=== PATIENT | male | born 1935 | race Caucasian/White ===

== ENCOUNTER 2018-01-18 07:01 | Inpatient (IN) | payer OTHER ==
[2018-01-03 18:22] VITALS: BMI 30.4
[2018-01-18] MEDS ORDERED: GABAPENTIN 300 MG CAPSULE (FP) PO ONE (07:26)
[2018-01-18] MEDS ORDERED: CEFAZOLIN 2 GM/D5W 2 GM/50 ML ML IVPB ONE (07:26)
[2018-01-18] MEDS ORDERED: TRANEXAMIC ACID 1000 MG/10 ML VIAL IVPUSH ONE (07:26)
[2018-01-18] MEDS ORDERED: CELECOXIB 200 MG CAPSULE PO ONE (07:26)
[2018-01-18] MEDS ORDERED: DEXAMETHASONE SOD PHOSPHATE/PF 10 MG/ML SDV ONE (07:37)
[2018-01-18] MEDS ORDERED: BUPIVACAINE HCL/PF (5 MG/ML) 30 ML VIAL IJ ONE (07:38)
[2018-01-18] MEDS ORDERED: MIDAZOLAM HCL 2 MG/2 ML SINGLE DOSE VIAL ONE (07:38)
[2018-01-18] MEDS ORDERED: GABAPENTIN 300 MG CAPSULE (FP) ONE (07:42)
[2018-01-18] MEDS ORDERED: CELECOXIB 200 MG CAPSULE ONE (07:42)
--- NOTE | 2018-01-18 07:53 | HP ---
Satellite [facility] - Chief Complaint Chief Complaint: right hip pain - Past Medical History Allergies/Adverse Reactions: Allergies Allergy/AdvReac Type Severity Reaction Status Date / Time No Known Allergies Allergy Verified 01/03/18 18:04 - Current Medications Current Medications: Home Medications Medication Instructions Recorded Amlodipine Besylate 5 mg PO HS 10/05/16 Aspirin [ASA -] 81 mg PO HS 10/05/16 Hydrochlorothiazide 25 mg PO HS 10/05/16 Losartan Potassium 100 mg PO HS 10/05/16 Simvastatin 10 mg PO HS 10/05/16 Cholecalciferol (Vitamin D3) 400 unit PO DAILY 01/03/18 [Vitamin D3 -] Ferrous Sulfate [Iron] 325 mg PO DAILY 01/03/18 Ibuprofen [Advil -] 200 mg PO DAILY 01/03/18 Satellite Physical Exam - Physical Examination Vital Signs: Vital Signs Period Temp Pulse Resp BP Sys/Nunn Pulse Ox Last 24 Hr 97.9 F 66 18 130/66 General Appearance: Well Nourished, Well Developed, Alert & Oriented x3 ENT: Clear Lung: Normal air movement Heart: Regular rate & rhythm Extremities: Other (right hip- + ttp, decr rom, nvi xrays show grade 4 hip djd) Neurological: Intact, Alert, Oriented Satellite Impression/Plan - Impression/Plan Impression: right hip djd Operative Procedure: right yany thr Date to be Performed: 01/18/18
[2018-01-18] MEDS ORDERED: VANCOMYCIN 1,000 MG VIAL (RESTRICTED TO ID ONLY) IVPB ONE (09:22)
[2018-01-18] MEDS ORDERED: ONDANSETRON 4 MG/2 ML VIAL IVPUSH PRN (09:37)
[2018-01-18] MEDS ORDERED: MAGNESIUM HYDROX 2400MG/30ML ORAL SUSPENSION 30 ML CUP PO PRN (09:51)
[2018-01-18] MEDS ORDERED: MAG HYDROX/AL HYDROX/SIMETH 30 ML UNIT-DOSE CUP PO PRN (09:51)
--- NOTE | 2018-01-18 09:53 | OP ---
Operative Note - Note: Operative Date: 01/18/18 (florecita) Pre-Operative Diagnosis: right hip djd Operation: right yany thr Post-Operative Diagnosis: Same as Pre-op Surgeon: Bonifacio Morales Character Impersonator: Pete Kruse Anesthesiologist/FOOT AND ANKLE SURGEON: Michael Cody Anesthesia: Spinal, Local Specimens Removed: femoral head Estimated Blood Loss (mls): 100 Operative Report Dictated: Yes
[2018-01-18] MEDS ORDERED: LACTATED RINGERS SOLUTION 1,000 ML IV SCH (10:00)
--- NOTE | 2018-01-18 10:37 | SPEC ---
DATE OF OPERATION: 01/18/2018 PREOPERATIVE DIAGNOSIS: Degenerative joint disease right hip. POSTOPERATIVE DIAGNOSIS: Degenerative joint disease right hip. PROCEDURE PERFORMED: Right total hip replacement with robotic-assisted navigation (MAKOplasty). SURGICAL ATTENDING: Bonifacio Morales MD ENDOSCOPY RN: RENETTA Juarez ANESTHESIA: Regional and spinal. CLOSURE: A Roosevelt hip system with a 58 Trident II press-fit acetabulum, a number 7 press-fit Accolade II femoral stem, and a 36-mm plus 5 femoral head. Number 1 Vicryl for fascia, 0 and 2-0 subcutaneous, 3-0 V-Loc for skin, 4-0 undyed Vicryl for pin sites. ESTIMATED BLOOD LOSS: Negligible. COMPLICATIONS: None. CONDITION: To the recovery room in stable condition. DESCRIPTION OF PROCEDURE: The patient was taken to the operating room on January 18, 2018. General and regional anesthesia was administered by the anesthesiologist. IV Kefzol and TXA were administered prophylactically prior to the case. The patient was placed in the lateral decubitus position will all prominences well-padded. The right hip area was prepped and draped in the usual sterile fashion. Using 3 small stab incisions over the iliac crest, 3 threaded pins were drilled in power fashion through the 2 tables of the crest. These pins were fastened and the navigation array for the Lam navigation system. Next, a 12 to 15-cm curved longitudinal incision over the posterolateral aspect of the greater trochanter was incised. Hemostasis was achieved with Bovie cautery. Sharp dissection was carried down to level of the fascia. The fascia was opened the entire length of the incision, spreading the fibers of the gluteus tona in the direction of origin. A Charnley retractor was placed in this layer. Care was taken not to impale the sciatic nerve. The short external rotators were detached off the insertion of the greater trochanter and peeled off the capsule. A posterior capsulotomy was then performed. A check point was malleted into the greater trochanter and a point on the inferior pole of the patella was obtained as well. These 2 points were used to assess the preoperative offset and limb lengths of the hip. The hip was then dislocated. The femoral neck was then osteotomized down to the appropriate level as directed by the navigation device. Anterior and posterior retractors were placed, exposing the acetabulum. A circumferential labral excision was performed. A check point was malleted into the acetabulum as well. Multiple sites inside the acetabulum and around the rim were utilized to register the acetabulum with the navigation device. An excellent registration of less than 0.5 mm was obtained. The hip was then reamed with the appropriate reamer down to the appropriate depth, with the appropriate orientation and version as assessed on our preoperative plan for this patient. The reamer was removed and the acetabulum was inspected to have good bleeding surfaces throughout. The real acetabular cup was then malleted down into place, with the holes in the appropriate position, until an excellent fixation was obtained. No screws were necessary. The navigation device ensured appropriate orientation and version, with the depth as predetermined. The appropriate liner was then clipped into place. Attention was directed to the femur. The proximal femur was prepared by use a box chisel, a canal finder and serial broaches until the broach achieved excellent rigidity in the proximal femur with the appropriate version being applied. A calcar planer was used to smooth off the calcar flush with the trial components. A trial reduction with the appropriate head was done, and the hip was reduced. The hip was taken through a range of motion from full extension with external rotation to marked flexion, and was stable at 90 degrees of flexion. It was stable to marked abduction and internal rotation, with a positive hang test and negative telescoping. Limb lengths were ascertained visually as well as with the navigation device to be within the targeted range for this patient. The trial component was removed. The real component was then malleted into place. The head was cold welded to the trunnion, and the hip was reduced. Range of motion, stability and limb lengths were as described in the trial component. Then the hip was pulse antibiotic irrigated. Vancomycin powder was placed in the hip joint. The capsule was closed. The fascia was then closed as well using number 1 Vicryl interrupted suture, 0 and 2-0 subcutaneous, and 3-0 V-Loc for the skin. 4-0 undyed Vicryl was used to close the pin sites after the pins were removed. All check points were also removed. Sterile Aquacel dressing was applied. The patient was awakened from anesthesia and transferred into the supine position. Bilateral SCDs and an abduction pillow were placed. X-rays revealed excellent position of the components. The patient was transferred to the recovery room in stable condition, with no complications. Estimated blood loss was negligible. Steven [id number]
[2018-01-18] MEDS: ACETAMINOPHEN 325 MG TABLET (FP) PO SCH ×3 (12:51→21:50)
[2018-01-18] MEDS: FERROUS SO4 325 MG TABLET (FP) PO SCH (12:51)
[2018-01-18] MEDS: PANTOPRAZOLE 40 MG TABLET (FP) PO SCH (12:59)
[2018-01-18] MEDS: MULTIVITAMINS (DAILY MVI) TABLET (FP) PO SCH (12:59)
[2018-01-18] MEDS: SENNOSIDES/DOCUSATE COMBO (SENNA PLUS) TABLET (UD) PO SCH ×2 (16:20→21:50)
[2018-01-18] MEDS: oxyCODONE HCL 5 MG TABLET PO PRN (16:23)
[2018-01-18] MEDS: CEFAZOLIN 2 GM/D5W 2 GM/50 ML ML IVPB SCH (16:24)
[2018-01-18] MEDS: ATORVASTATIN CA 10 MG TABLET (FP) PO SCH (21:49)
[2018-01-18] MEDS: LOSARTAN POTASSIUM 50 MG TABLET (FP) PO SCH (21:49)
[2018-01-18] MEDS: amLODIPine BESYLATE 5 MG TABLET (FP) PO SCH (21:50)
[2018-01-18] MEDS: HYDROCHLOROTHIAZIDE 25 MG TABLET (FP) PO SCH (21:51)
[2018-01-19] MEDS: CEFAZOLIN 2 GM/D5W 2 GM/50 ML ML IVPB SCH (00:10)
[2018-01-19] MEDS: oxyCODONE HCL 5 MG TABLET PO PRN ×2 (05:48→10:43)
[2018-01-19] MEDS: ACETAMINOPHEN 325 MG TABLET (FP) PO SCH ×4 (05:49→22:17)
[2018-01-19] MEDS: ASPIRIN 325 MG TABLET PO SCH (08:15)
--- NOTE | 2018-01-19 08:24 | PN ---
Progress Note (short form) - Note Progress Note: Ortho Pt seen and examined s/p right yany thr pod #1 Selected Entries 01/19/18 06:54 Temperature 98 F Pulse Rate 68 Respiratory 20 Rate Blood Pressure 100/48 Laboratory Tests 01/19/18 07:50 WBC Pending Hgb Pending Hct Pending Plt Count Pending dressing c/d/i, calf soft, nt nvi a/p PT hip precautions dvt ppx pain control d/c planning to rehab
[2018-01-19 08:54] LABS: HEMATOCRIT 33.8 % (35.4-49); HEMOGLOBIN 11.2 GM/dl (11.7-16.9); MCH 29.8 pg (25.7-33.7); MCHC 33.2 g/dl (32.0-35.9); MEAN CELL VOLUME 89.9 fl (80-96); MEAN PLT VOLUME 7.8 fl (7.5-11.1); PLATELET COUNT 228 K/MM3 (134-434); RBC 3.75 M/mm3 (4.00-5.60); RDW 12.1 % (11.9-15.9); WHITE BLOOD COUNT 11.9 K/mm3 (4.0-10.8)
[2018-01-19] MEDS: SENNOSIDES/DOCUSATE COMBO (SENNA PLUS) TABLET (UD) PO SCH ×2 (10:39→22:17)
[2018-01-19] MEDS: FERROUS SO4 325 MG TABLET (FP) PO SCH (10:39)
[2018-01-19] MEDS: PANTOPRAZOLE 40 MG TABLET (FP) PO SCH (10:42)
[2018-01-19] MEDS: MULTIVITAMINS (DAILY MVI) TABLET (FP) PO SCH (10:43)
--- NOTE | 2018-01-19 13:25 | PN ---
Progress Note (short form) - Note Progress Note: 82M POD1 s/p R THR yany under spinal anesthetic with peripheral nerve block for post operative pain relief. Pt states that pain is well controlled, reports no anesthetic complications. AVSS. Motor and sensory function intact in bilateral lower extremities. Continue current regimen.
[2018-01-19] MEDS: amLODIPine BESYLATE 5 MG TABLET (FP) PO SCH (22:14)
[2018-01-19] MEDS: LOSARTAN POTASSIUM 50 MG TABLET (FP) PO SCH (22:15)
[2018-01-19] MEDS: ATORVASTATIN CA 10 MG TABLET (FP) PO SCH (22:16)
[2018-01-19] MEDS: HYDROCHLOROTHIAZIDE 25 MG TABLET (FP) PO SCH (22:16)
[2018-01-20] MEDS: LACTATED RINGERS SOLUTION 1,000 ML IV SCH (01:08)
[2018-01-20] MEDS: ACETAMINOPHEN 325 MG TABLET (FP) PO SCH ×4 (04:05→21:55)
[2018-01-20] MEDS: oxyCODONE HCL 5 MG TABLET PO PRN ×3 (06:47→14:45)
[2018-01-20 08:58] LABS: HEMATOCRIT 32.9 % (35.4-49); HEMOGLOBIN 11.5 GM/dl (11.7-16.9); MCH 31.4 pg (25.7-33.7); MEAN CELL VOLUME 89.7 fl (80-96); MEAN PLT VOLUME 7.8 fl (7.5-11.1); PLATELET COUNT 199 K/MM3 (134-434); RBC 3.66 M/mm3 (4.00-5.60); RDW 12.4 % (11.9-15.9); WHITE BLOOD COUNT 11.3 K/mm3 (4.0-10.8)
--- NOTE | 2018-01-20 09:03 | PN ---
Progress Note (short form) - Note Progress Note: Ortho Pt seen and examined s/p right yany thr pod #2 Selected Entries 01/19/18 22:00 Temperature 98.5 F Pulse Rate 76 Respiratory 20 Rate Blood Pressure 145/51 Laboratory Tests 01/20/18 08:30 WBC 11.3 H Hgb 11.5 L Hct 32.9 L Plt Count 199 dressing c/d/i, calf soft, nt nvi a/p PT hip precautions dvt ppx pain control d/c planning to rehab tomorrow
[2018-01-20] MEDS: SENNOSIDES/DOCUSATE COMBO (SENNA PLUS) TABLET (UD) PO SCH ×2 (09:11→21:55)
[2018-01-20] MEDS: PANTOPRAZOLE 40 MG TABLET (FP) PO SCH (09:11)
[2018-01-20] MEDS: MULTIVITAMINS (DAILY MVI) TABLET (FP) PO SCH (09:11)
[2018-01-20] MEDS: ASPIRIN 325 MG TABLET PO SCH (09:11)
[2018-01-20] MEDS: FERROUS SO4 325 MG TABLET (FP) PO SCH (10:00)
--- NOTE | 2018-01-20 13:33 | PATH ---
Surgical Pathology Report Patient Name: ELAINE MIMS Med. Rec. #: [id number] /Age/Gender: 1935 (Age: 82) / M Account: [id number] Location: [facility] MED-SURG Taken: 01/18/2018 Received: 01/18/2018 Reported: 01/20/2018 Physicians: Bonifacio Morales M.D. Specimen(s) Received HEAD OF RIGHT FEMUR Clinical History Osteoarthritis of right hip Final Diagnosis BONE, HEAD OF FEMUR, RIGHT, TOTAL HIP REPLACEMENT MAKOPLASTY: BONE WITH DEGENERATIVE JOINT DISEASE. Electronically Signed Leonor Honeycutt M.D. Gross Description Received in formalin, labeled "head of right femur," is a 4.8 x 4.8 x 4.6 cm. femoral head with a 1.5 cm in length portion of femoral neck attached. The margin of resection is smooth. There is a 1.4 cm greatest dimension area of eburnation present. The remaining articular surface is salazar-yellow and diffusely granular and nodular. The underlying trabecular bone is yellow and hard. A collections representative section is submitted in one cassette, following decalcification. /01/18/2018 saudi01/18/2018
[2018-01-20] MEDS: LOSARTAN POTASSIUM 50 MG TABLET (FP) PO SCH (21:55)
[2018-01-20] MEDS: ATORVASTATIN CA 10 MG TABLET (FP) PO SCH (21:55)
[2018-01-20] MEDS: amLODIPine BESYLATE 5 MG TABLET (FP) PO SCH (21:55)
[2018-01-20] MEDS: HYDROCHLOROTHIAZIDE 25 MG TABLET (FP) PO SCH (22:29)
[2018-01-21] MEDS: ACETAMINOPHEN 325 MG TABLET (FP) PO SCH (06:13)
[2018-01-21 06:35] VITALS: BP 123/54; PULSE 74; TEMP 98.6
[2018-01-21] MEDS: LACTATED RINGERS SOLUTION 1,000 ML IV SCH ×2 (08:11→09:50)
[2018-01-21] MEDS: oxyCODONE HCL 5 MG TABLET PO PRN (08:34)
[2018-01-21] MEDS: ASPIRIN 325 MG TABLET PO SCH (08:34)
--- NOTE | 2018-01-21 09:43 | PN ---
Progress Note (short form) - Note Progress Note: Ortho Pt seen and examined s/p right yany thr pod #3 Selected Entries 01/21/18 06:00 Temperature 98.6 F Pulse Rate 74 Respiratory 18 Rate Blood Pressure 123/54 Laboratory Tests 01/20/18 08:30 WBC 11.3 H Hgb 11.5 L Hct 32.9 L Plt Count 199 dressing c/d/i, calf soft, nt nvi a/p PT hip precautions dvt ppx pain control d/c to rehab today
--- NOTE | 2018-01-21 09:43 | DS ---
Physical Examination Vital Signs: Vital Signs Temperature 98.6 F 01/21/18 06:00 Pulse Rate 74 01/21/18 06:00 Respiratory Rate 18 01/21/18 06:00 Blood Pressure 123/54 01/21/18 06:00 O2 Sat by Pulse Oximetry (%) 97 01/21/18 06:00 Labs: CBC, BMP 01/20/18 08:30 Discharge Summary Reason For Visit: OSTEOARTHRITIS Procedures: Principal: right thr Hospital Course: admitted for elective right yany thr, uneventful post-op, stable for d/c Condition: Good - Instructions Diet, Activity, Other Instructions: Post-op Instructions-Total Hip Replacement Call the office for a follow-up appointment in 1 week - [phone] Aspirin 325mg daily for 6 weeks. Pain medication was sent into your pharmacy. Apply Graduated Compression Stockings (TEDs) to both lower extremities- remove daily for hygiene ONLY Apply Sequential Compression Device (SCDs) to both Lower extremities remove for PT and hygiene ONLY Apply cold packs to affected area for 15 minutes every 2 hours. Physical Therapist will come to your home for the first 5 days. You will be set up with outpatient PT at your first post-operative visit. Patient may ambulate as tolerated-encourage self care (at least every 2-3 hours while awake) with walker or cane Maintain Aquacel (waterproof) dressing to operative wound (will be removed by surgeon at first office visit) Shower with Aquacel dressing in place-if Aquacel integrity compromised, remove and apply dry sterile dressing and notify Orthopedist. DO NOT SHOWER unless Orthopedists approves without Aquacel dressing CONTACT THE OFFICE FOR ANY CHANGE IN YOUR CONDITION (for example-fever greater than 102 degrees, excessive bleeding from operative site, purulent drainage, severe swelling or pain) GO TO THE EMERGENCY ROOM IF THERE IS A MEDICAL EMERGENCY Hip Precautions: * Keep a rolled towel under affected heel while in bed or chair (to keep knee in extension) * Dependent upon approach: * Posterior - do not cross legs; do not sit on low chairs or toilets. * If you have any questions, please do not hesitate to call the office - [phone]. Referrals: Bonifacio Morales MD [Staff Physician] - Disposition: [facility] FACILITY - Home Medications Comprehensive Discharge Medication List: Ambulatory Orders Amlodipine Besylate 5 mg PO HS 10/05/16 Hydrochlorothiazide 25 mg PO HS 10/05/16 Losartan Potassium 100 mg PO HS 10/05/16 Simvastatin 10 mg PO HS 10/05/16 Cholecalciferol (Vitamin D3) [Vitamin D -] 400 unit PO DAILY 01/03/18 Ferrous Sulfate [Iron] 325 mg PO DAILY 01/03/18 Ibuprofen [Advil -] 200 mg PO DAILY 01/03/18 Aspirin [ASA -] 325 mg PO DAILY@0800 tablet 01/18/18 Oxycodone HCl/Acetaminophen [Percocet 5-325 mg Tablet -] 1 - 2 tab PO Q6H #50 tab MDD 8 01/18/18
[2018-01-21] MEDS: SENNOSIDES/DOCUSATE COMBO (SENNA PLUS) TABLET (UD) PO SCH (09:53)
[2018-01-21] MEDS: FERROUS SO4 325 MG TABLET (FP) PO SCH (09:54)
[2018-01-21] MEDS: PANTOPRAZOLE 40 MG TABLET (FP) PO SCH (09:54)
[2018-01-21] MEDS: MULTIVITAMINS (DAILY MVI) TABLET (FP) PO SCH (09:54)
== END 2018-01-21 11:21 | DRG 470 ==
LOC: FM/S 07:01
PROVIDERS: ADMIT Orthopaedic Surgery; ATTEND Orthopaedic Surgery
PROC: 8E0Y0CZ Robotic Assisted Procedure of Lower Extremity, Open Approach (ICD-10-PCS; 2018-01-18)
PROC: 0SR90JZ Replacement of Right Hip Joint with Synthetic Substitute, Open Approach (ICD-10-PCS; principal; 2018-01-18 08:57)
DX: M16.11 Unilateral primary osteoarthritis, right hip (principal)
CPT/HCPCS: 36415; 73523-TC-FY; 85027; 88304-TC; 88311-TC; 94760; 97116-GP; 97162-GP

== ENCOUNTER 2021-11-03 04:19 | Day surgery (SDC) | payer OTHER ==
[2021-10-29 15:01] VITALS: BMI 27.0
[2021-11-03 08:24] VITALS: BP 136/54; PULSE 70; TEMP 98.7
== END 2021-11-03 09:30 | disposition home or self-care (01) ==
LOC: JASU-SURG 04:19
PROVIDERS: ATTEND Urology
DX: Z53.8 Procedure and treatment not carried out for other reasons (principal)

== ENCOUNTER 2021-11-17 04:16 | Day surgery (SDC) | payer OTHER ==
[2021-11-12 15:13] VITALS: BMI 27.0
[2021-11-17] MEDS ORDERED: MIDAZOLAM HCL 2 MG/2 ML SINGLE DOSE VIAL ONE (07:39)
[2021-11-17] MEDS ORDERED: PROPOFOL 20 ML ONE (08:05)
[2021-11-17] MEDS ORDERED: ONDANSETRON 4 MG/2 ML VIAL IVPUSH PRN (08:29)
[2021-11-17] MEDS ORDERED: LACTATED RINGERS SOLUTION 1,000 ML IV SCH (08:30)
[2021-11-17] MEDS: HYDROCHLOROTHIAZIDE 25 MG TABLET (FP) PO SCH (10:37)
[2021-11-17] MEDS: LOSARTAN POTASSIUM 50 MG TABLET PO SCH (10:37)
[2021-11-17] MEDS: ACETAMINOPHEN 325 MG TABLET (FP) PO PRN (20:28)
[2021-11-18] MEDS: HYDROCHLOROTHIAZIDE 25 MG TABLET (FP) PO SCH (09:59)
[2021-11-18] MEDS: LOSARTAN POTASSIUM 50 MG TABLET PO SCH (09:59)
[2021-11-18 11:42] VITALS: BP 115/52; PULSE 70; TEMP 98.3
[2021-11-18] MEDS: ACETAMINOPHEN 325 MG TABLET (FP) PO PRN (12:32)
== END 2021-11-18 13:16 | disposition home or self-care (01) ==
LOC: JASUSAT 04:16 → J8W 09:26 → JASUSAT 11-18 13:16
PROVIDERS: ATTEND Urology
PROC: 0TF3XZZ Fragmentation in Right Kidney Pelvis, External Approach (ICD-10-PCS; principal; 2021-11-17 08:00)
DX: N20.0 Calculus of kidney (principal)
CPT/HCPCS: 94760

== ENCOUNTER 2023-10-13 17:02 | Inpatient (IN) | payer OTHER ==
[2023-10-13 19:14] VITALS: BMI 21.8
[2023-10-13 20:32] LABS: BASO % 0.5 % (0-2.0); EOS % 1.4 % (0-4.5); HEMATOCRIT 41.3 % (35.4-49); HEMOGLOBIN 13.5 GM/dL (11.7-16.9); LYMPH % 10.7 % (8-40); MCH 30.8 pg (25.7-33.7); MCHC 32.7 g/dl (32.0-35.9); MEAN CELL VOLUME 94.3 fl (80-96); MEAN PLT VOLUME 8.1 fl (7.5-11.1); MONO % 7.7 % (3.8-10.2); NEUT % 79.7 % (42.8-82.8); PLATELET COUNT 284 10^3/uL (134-434); RBC 4.37 M/mm3 (4.00-5.60); WHITE BLOOD COUNT 10.7 K/mm3 (4.0-10.0)
[2023-10-13 20:39] LABS: INR 0.98 (0.83-1.09); PROTHROMBIN TIME (PATIENT) 11.4 SEC (9.7-13.0)
[2023-10-13 20:41] LABS: ACTIVATED PTT 27.5 SECONDS (25.2-36.5)
[2023-10-13 20:45] LABS: POTASSIUM 3.5 mmol/L (3.5-5.1)
[2023-10-13 20:46] LABS: CALCIUM 9.6 mg/dL (8.5-10.1)
[2023-10-13 20:47] LABS: BLOOD UREA NITROGEN 48.4 mg/dL (7-18); MAGNESIUM 1.9 mg/dL (1.8-2.4)
[2023-10-13 20:49] LABS: ALBUMIN 3.6 g/dl (3.4-5.0); CREATININE 1.3 mg/dL (0.55-1.3)
[2023-10-13 20:51] LABS: BILIRUBIN,TOTAL 1.3 mg/dL (0.2-1); TOT PROT 7.4 g/dl (6.4-8.2)
[2023-10-13] MEDS: SODIUM CHLORIDE 0.9% 500 ML INFUS.BAG IV ONE (21:25)
[2023-10-14] MEDS ORDERED: ASPIRIN 81 MG CHEWABLE TABLETS ONE ×3 (01:27→11:23)
[2023-10-14] MEDS: ASPIRIN 81 MG CHEWABLE TABLETS PO ONE (01:33)
[2023-10-14 03:48] LABS: PH,URINE 5.5 (5.0-8.0); URINE APPEARANCE CLEAR; URINE BILIRUBIN NEGATIVE (NEGATIVE); URINE COLOR YELLOW; URINE GLUCOSE (UA) NEGATIVE (NEGATIVE); URINE KETONE NEGATIVE (NEGATIVE); URINE LEUK ESTERASE NEGATIVE (NEGATIVE); URINE NITRITE NEGATIVE (NEGATIVE); URINE PROTEIN TRACE (NEGATIVE)
[2023-10-14] MEDS: SODIUM CHLORIDE 1,000 ML IV SCH (04:17)
[2023-10-14 08:03] LABS: BASO % 0.3 % (0-2.0); EOS % 2.6 % (0-4.5); HEMATOCRIT 36.2 % (35.4-49); HEMOGLOBIN 12.2 GM/dL (11.7-16.9); MCH 31.6 pg (25.7-33.7); MCHC 33.7 g/dl (32.0-35.9); MEAN CELL VOLUME 93.6 fl (80-96); MEAN PLT VOLUME 8.6 fl (7.5-11.1); MONO % 9.3 % (3.8-10.2); NEUT % 71.8 % (42.8-82.8); PLATELET COUNT 243 10^3/uL (134-434); RBC 3.86 M/mm3 (4.00-5.60); RDW 13.8 % (11.9-15.9); WHITE BLOOD COUNT 8.3 K/mm3 (4.0-10.0)
[2023-10-14 08:30] LABS: POTASSIUM 3.2 mmol/L (3.5-5.1)
[2023-10-14 08:36] LABS: ALBUMIN 3.3 g/dl (3.4-5.0); BLOOD UREA NITROGEN 42.3 mg/dL (7-18); CALCIUM 8.9 mg/dL (8.5-10.1)
[2023-10-14 08:40] LABS: PHOSPHOROUS 2.2 mg/dL (2.5-4.9); TOT PROT 6.7 g/dl (6.4-8.2)
[2023-10-14 08:42] LABS: BILIRUBIN,TOTAL 1.5 mg/dL (0.2-1)
[2023-10-14] MEDS ORDERED: POTASSIUM CHLORIDE TABS 20 MEQ TABLET.ER (FP) PO ONE (10:55)
[2023-10-14] MEDS ORDERED: LIDOCAINE 4% PATCH TP ONE (10:56)
[2023-10-14] MEDS ORDERED: ENOXAPARIN NA (PORCINE) 40 MG/0.4 ML DISP.SYRIN SQ ONE (10:56)
[2023-10-14] MEDS: ASPIRIN 81 MG CHEWABLE TABLETS PO SCH (11:15)
[2023-10-14] MEDS: POTASSIUM CHLORIDE TABS 20 MEQ TABLET.ER (FP) PO ONE (11:15)
[2023-10-14] MEDS: ENOXAPARIN NA (PORCINE) 40 MG/0.4 ML DISP.SYRIN SQ SCH (11:49)
[2023-10-14] MEDS: LIDOCAINE 4% PATCH TP SCH ×2 (11:49)
[2023-10-14] MEDS: OLANZapine 2.5 MG TABLET PO SCH (11:50)
[2023-10-14] MEDS: ATORVASTATIN CA 10 MG TABLET (FP) PO SCH (23:04)
[2023-10-14] MEDS: SENNOSIDES 8.6MG TABLET (FP) PO SCH (23:04)
[2023-10-14] MEDS: LIDOCAINE PATCH REMOVAL MC SCH (23:04)
[2023-10-14 23:51] LABS: N-TERMINAL BNP 1233.2 pg/ml (5-450)
[2023-10-15] MEDS: MELATONIN 1 MG TABLET PO SCH (01:30)
[2023-10-15] MEDS: metoPROLOL SUCCINATE 25 MG TAB.SR.24H (FP) PO SCH (10:14)
[2023-10-15 12:01] LABS: HEMATOCRIT 32.4 % (35.4-49); HEMOGLOBIN 10.9 GM/dL (11.7-16.9); MCH 31.4 pg (25.7-33.7); MCHC 33.6 g/dl (32.0-35.9); MEAN CELL VOLUME 93.6 fl (80-96); PLATELET COUNT 234 10^3/uL (134-434); RBC 3.47 M/mm3 (4.00-5.60); WHITE BLOOD COUNT 5.3 K/mm3 (4.0-10.0)
[2023-10-15 12:21] LABS: POTASSIUM 3.7 mmol/L (3.5-5.1)
[2023-10-15 12:23] LABS: ALBUMIN 2.8 g/dl (3.4-5.0); BLOOD UREA NITROGEN 30.3 mg/dL (7-18); CALCIUM 8.9 mg/dL (8.5-10.1)
[2023-10-15 12:26] LABS: CREATININE 0.8 mg/dL (0.55-1.3)
[2023-10-15 12:28] LABS: TOT PROT 5.7 g/dl (6.4-8.2)
[2023-10-16 08:43] LABS: HEMATOCRIT 33.9 % (35.4-49); HEMOGLOBIN 11.2 GM/dL (11.7-16.9); MCH 31.3 pg (25.7-33.7); MEAN CELL VOLUME 94.9 fl (80-96); PLATELET COUNT 232 10^3/uL (134-434); RBC 3.57 M/mm3 (4.00-5.60); RDW 13.7 % (11.9-15.9); WHITE BLOOD COUNT 5.9 K/mm3 (4.0-10.0)
[2023-10-16 09:05] LABS: POTASSIUM 3.7 mmol/L (3.5-5.1)
[2023-10-16 09:11] LABS: ALBUMIN 2.9 g/dl (3.4-5.0); CALCIUM 9.2 mg/dL (8.5-10.1)
[2023-10-16 09:12] LABS: BLOOD UREA NITROGEN 27.9 mg/dL (7-18)
[2023-10-16 09:14] LABS: CREATININE 0.8 mg/dL (0.55-1.3)
[2023-10-16 09:16] LABS: BILIRUBIN,TOTAL 0.6 mg/dL (0.2-1); TOT PROT 5.7 g/dl (6.4-8.2)
[2023-10-16] MEDS: metoPROLOL SUCCINATE 25 MG TAB.SR.24H (FP) PO SCH (12:23)
[2023-10-17] MEDS: POLYETHYLENE GLYCOL (HEALTHYLAX) 3350 17 GM PACKET PO SCH (21:22)
[2023-10-17 22:20] VITALS: RESP 18
[2023-10-18] MEDS: ACETAMINOPHEN 325 MG TABLET (FP) PO ONE (06:42)
[2023-10-19 16:08] VITALS: BP 111/55; PULSE 65; TEMP 98.1
== END 2023-10-19 18:00 | DRG 884 ==
LOC: JER 17:02 → JERBED 20:03 → J4W 10-14 13:38 → J4S 10-14 21:30
PROVIDERS: ADMIT Internal Medicine; ATTEND Internal Medicine
DX: F03.918 Unspecified dementia, unspecified severity, with other behavioral disturbance (principal); I24.89 Other forms of acute ischemic heart disease; I50.9 Heart failure, unspecified; I11.0 Hypertensive heart disease with heart failure; E78.5 Hyperlipidemia, unspecified
CPT/HCPCS: 0241U-QW; 36415; 70450-TC; 71045-TC-FY; 72170-TC-FY; 73521-TC-FY; 80053; 80061; 81003; 82962; 83036; 83735; 83880; 84100; 84443; 84484; 85025; 85027; 85610; 85730; 87086; 93005; 93010; 93306-TC; 97116-GP; 97161-GP; 99285-25